=== PATIENT | female | born 1960 | race Two or more races ===

== ENCOUNTER 2023-08-19 01:48 | Inpatient (IN) | payer MEDICAID, OTHER ==
[~2023-08-19] VITALS: Ht 154.9 cm; Wt 115.2 kg
[2023-08-19 02:42] LABS: Basophils # (auto) 0.1 10 ^3/uL (0-0.2); Basophils % (auto) 0.8 % (0.0-2.0); Eosinophils # (auto) 0.4 10 ^3/uL (0-0.8); Eosinophils % (auto) 4.6 % (0.0-7.0); Hematocrit 40.5 % (36.0-46.0); Hemoglobin 12.5 g/dL (12.2-16.2); Lymphocytes # (auto) 1.7 10 ^3/uL (0.4-5.4); Lymphocytes % (auto) 19.3 % (10.0-50.0); Mean Corpuscular Hemoglobin 25.6 pg (28.0-32.0); Mean Corpuscular Volume 82.5 fL (80.0-100.0); Monocytes # (auto) 0.9 10 ^3/uL (0-1.3); Monocytes % (auto) 10.1 % (0.0-12.0); Neutrophils # (auto) 5.8 10 ^3/uL (1.6-8.6); Neutrophils % (auto) 65.2 % (37.0-80.0); Red Blood Cells 4.91 10^6/uL (4.0-5.20); Red Cell Distribution Width 16.7 % (11.8-14.3); White Blood Cell 8.9 10^3/uL (4.4-10.8)
[2023-08-19 02:53] LABS: Alanine Aminotransferase 49 U/L (7-40); Albumin 3.8 g/dL (3.2-4.8); Alkaline Phosphatase 71 U/L (46-116); Anion Gap 2 (5-15); Aspartate Aminotransferase 37 U/L (13-40); BUN/Creatinine Ratio 30.6 (10.0-20.0); Blood Urea Nitrogen 15 mg/dL (9-23); Calcium 9.5 mg/dL (8.7-10.4); Carbon Dioxide 31 mmol/L (20-30); Chloride 109 mmol/L (98-107); Glucose 110 mg/dL (74-106); Potassium 4.2 mmol/L (3.5-5.1); Sodium 142 mmol/L (136-145)
[2023-08-19 02:54] LABS: Bilirubin, Total 0.3 mg/dL (0.2-1.0)
[2023-08-19 03:01] LABS: Urine Bacteria None Seen /hpf (None Seen)
[2023-08-19 03:17] LABS: Urine Blood Negative /uL (Negative); Urine Clarity Clear (Clear); Urine Color Light-Yellow (Yellow); Urine Protein, UAD Negative (Negative); Urine Specific Gravity 1.023 (1.001-1.035); Urine Urobilinogen Normal (Negative); Urine WBC <1 /hpf (0 - 5); Urine pH 5.5 (5.0-9.0)
[2023-08-19 03:28] VITALS: PULSE 85; RESP 20; O2SAT 94
[2023-08-19] MEDS: SODIUM CHLOR 0.9% PF (SALINE LOCK) 10ML VIAL/SYR IV SCH (05:45)
[2023-08-19 06:17] LABS: INR 1.1 (0.9-1.15); Prothrombin Time 11.5 sec (9.3-11.8)
[2023-08-19] MEDS: HEPARIN SODIUM (PORCINE) 5000 UNITS/ML 1ML VIAL IV ONE (06:48)
[2023-08-19] MEDS: HEPARIN DRIP/D5W 100UNITS/ML 250 ML IV SCH (06:48)
[2023-08-19 07:45] VITALS: PULSE 93; RESP 20; O2SAT 92
[2023-08-19] MEDS ORDERED: MORPHINE SULFATE 4 MG/ML SYR/VIAL IV PRN (11:15)
[2023-08-19] MEDS ORDERED: ONDANSETRON HCL 4 MG/2 ML VIAL IV PRN (11:15)
[2023-08-19] MEDS ORDERED: NITROGLYCERIN 0.4 MG SL TAB SL PRN (11:15)
[2023-08-19] MEDS: cefTRIAXone 1GM/50ML D5W 50 ML IV ONE (13:50)
[2023-08-19 14:05] LABS: INR 1.18 (0.9-1.15); Partial Thromboplastin Time 38.6 SEC (24.5-34.5); Prothrombin Time 12.3 sec (9.3-11.8)
[2023-08-19] MEDS: FUROSEMIDE 20 MG/2 ML VIAL IV SCH (18:09)
[2023-08-19 19:13] LABS: Triglycerides 106 mg/dL (< 150)
[2023-08-19 19:14] LABS: LDL Cholesterol 83 mg/dL (< 100)
[2023-08-19 19:15] LABS: Cholesterol 142 mg/dL (< 200); HDL Cholesterol 49 mg/dL (40-59)
[2023-08-19 20:12] VITALS: PULSE 78; RESP 16; O2SAT 98
[2023-08-19 21:39] LABS: INR 1.21 (0.9-1.15); Partial Thromboplastin Time 45.6 SEC (24.5-34.5); Prothrombin Time 12.5 sec (9.3-11.8)
[2023-08-19] MEDS: HYDROcodone-ACET 5/325MG TAB PO PRN (22:54)
[2023-08-19] MEDS: ATORVASTATIN 20 MG TAB PO SCH (23:22)
[2023-08-20] VITALS (8 sets, daily range): BP systolic 106–146; BP diastolic 59–86; PULSE 73–87; RESP 18–20; TEMP 36.9; O2SAT 96–100
[2023-08-20 03:00] LABS: Basophils # (auto) 0.1 10 ^3/uL (0-0.2); Basophils % (auto) 0.6 % (0.0-2.0); Eosinophils # (auto) 0.4 10 ^3/uL (0-0.8); Eosinophils % (auto) 4.1 % (0.0-7.0); Hematocrit 40.2 % (36.0-46.0); Hemoglobin 12.4 g/dL (12.2-16.2); Lymphocytes # (auto) 1.6 10 ^3/uL (0.4-5.4); Lymphocytes % (auto) 18.3 % (10.0-50.0); Mean Corpuscular Hemoglobin 25.6 pg (28.0-32.0); Mean Corpuscular Hgb Conc. 30.8 g/dL (32.0-36.0); Monocytes % (auto) 10.9 % (0.0-12.0); Neutrophils # (auto) 5.9 10 ^3/uL (1.6-8.6); Neutrophils % (auto) 66.1 % (37.0-80.0); Nucleated Red Blood Cells % 0.1 %; Red Blood Cells 4.85 10^6/uL (4.0-5.20); Red Cell Distribution Width 16.4 % (11.8-14.3); White Blood Cell 8.9 10^3/uL (4.4-10.8)
[2023-08-20 03:12] LABS: Alanine Aminotransferase 43 U/L (7-40); Albumin 3.6 g/dL (3.2-4.8); Alkaline Phosphatase 71 U/L (46-116); Anion Gap 3 (5-15); Aspartate Aminotransferase 36 U/L (13-40); BUN/Creatinine Ratio 15.3 (10.0-20.0); Bilirubin, Total 0.2 mg/dL (0.2-1.0); Blood Urea Nitrogen 9 mg/dL (9-23); Calcium 9.3 mg/dL (8.7-10.4); Carbon Dioxide 36 mmol/L (20-30); Chloride 103 mmol/L (98-107); Glucose 127 mg/dL (74-106); Sodium 142 mmol/L (136-145); Total Protein 6.9 g/dL (5.7-8.2)
[2023-08-20 03:19] LABS: INR 1.19 (0.9-1.15); Partial Thromboplastin Time 51.5 SEC (24.5-34.5); Prothrombin Time 12.4 sec (9.3-11.8)
[2023-08-20] MEDS ORDERED: OLAN20TA PO (03:53)
[2023-08-20] MEDS ORDERED: SERT-206 PO (03:53)
[2023-08-20 04:44] LABS: Triglycerides 102 mg/dL (< 150)
[2023-08-20 04:45] LABS: LDL Cholesterol 82 mg/dL (< 100)
[2023-08-20 04:46] LABS: Amphetamine Screen, Urine Neg (NEGATIVE); Barbiturate Scree,Urine Neg (NEGATIVE); Benzodiazephine Screen, Urine Neg (NEGATIVE); Cocaine Screen, Urine Neg (NEGATIVE); Opiate Scree,Urine Neg (NEGATIVE)
[2023-08-20 04:46] LABS: Cholesterol 139 mg/dL (< 200); HDL Cholesterol 46 mg/dL (40-59)
[2023-08-20 04:47] LABS: Cannabinoid Screen, Urine Neg (NEGATIVE); Phencyclidine Screen, Urine Neg (NEGATIVE)
[2023-08-20 09:52] LABS: INR 1.19 (0.9-1.15); Partial Thromboplastin Time 69.5 SEC (24.5-34.5); Prothrombin Time 12.4 sec (9.3-11.8)
[2023-08-20] MEDS: cefTRIAXone 1GM/50ML D5W 50 ML IV SCH (11:43)
[2023-08-20] MEDS: ASPirin 81 mg TAB PO SCH (11:43)
[2023-08-20] MEDS: DOCUSATE SOD 100 MG CAP PO SCH (11:43)
[2023-08-20 14:53] LABS: INR 1.21 (0.9-1.15); Partial Thromboplastin Time 65.7 SEC (24.5-34.5); Prothrombin Time 12.5 sec (9.3-11.8)
[2023-08-20] MEDS: OLANZapine 5 MG TAB PO SCH (18:20)
[2023-08-21] VITALS (9 sets, daily range): BP systolic 112–149; BP diastolic 57–64; PULSE 64–82; RESP 17–20; TEMP 36.9; O2SAT 94–97
[2023-08-21 05:39] LABS: Anion Gap 3 (5-15); Carbon Dioxide 37 mmol/L (20-30); Chloride 98 mmol/L (98-107); Potassium 4.3 mmol/L (3.5-5.1); Sodium 138 mmol/L (136-145)
[2023-08-21 05:40] LABS: Calcium 9.8 mg/dL (8.7-10.4)
[2023-08-21 05:43] LABS: Hemoglobin 12.1 g/dL (12.2-16.2); Lymphocytes # (auto) 1.5 10 ^3/uL (0.4-5.4); Mean Corpuscular Volume 83.2 fL (80.0-100.0); Monocytes # (auto) 0.8 10 ^3/uL (0-1.3); White Blood Cell 9.1 10^3/uL (4.4-10.8)
[2023-08-21 05:45] LABS: BUN/Creatinine Ratio 16.3 (10.0-20.0); Basophils # (auto) 0 10 ^3/uL (0-0.2); Basophils % (auto) 0.5 % (0.0-2.0); Blood Urea Nitrogen 8 mg/dL (9-23); Eosinophils # (auto) 0.2 10 ^3/uL (0-0.8); Eosinophils % (auto) 2.6 % (0.0-7.0); Glucose 114 mg/dL (74-106); Hematocrit 38.7 % (36.0-46.0); Lymphocytes % (auto) 16.6 % (10.0-50.0); Mean Corpuscular Hemoglobin 26.1 pg (28.0-32.0); Mean Corpuscular Hgb Conc. 31.3 g/dL (32.0-36.0); Monocytes % (auto) 8.6 % (0.0-12.0); Neutrophils # (auto) 6.5 10 ^3/uL (1.6-8.6); Neutrophils % (auto) 71.7 % (37.0-80.0); Nucleated Red Blood Cells % 0.1 %; Red Blood Cells 4.65 10^6/uL (4.0-5.20); Red Cell Distribution Width 16.4 % (11.8-14.3)
[2023-08-21 05:46] LABS: Magnesium 1.9 mg/dL (1.6-2.6)
[2023-08-21 05:59] LABS: INR 1.16 (0.9-1.15); Prothrombin Time 12.1 sec (9.3-11.8)
[2023-08-21 06:14] LABS: Partial Thromboplastin Time 70.1 SEC (24.5-34.5)
[2023-08-21] MEDS: HEPARIN DRIP/D5W 100UNITS/ML 250 ML IV SCH (16:45)
[2023-08-21] MEDS: OLANZapine 5 MG TAB PO SCH (21:14)
[2023-08-22 05:00] VITALS: BP 123/64; PULSE 70; RESP 20; TEMP 98.1; O2SAT 93
[2023-08-22 06:11] LABS: Basophils # (auto) 0 10 ^3/uL (0-0.2); Basophils % (auto) 0.5 % (0.0-2.0); Eosinophils # (auto) 0.3 10 ^3/uL (0-0.8); Eosinophils % (auto) 3.6 % (0.0-7.0); Hematocrit 40.3 % (36.0-46.0); Lymphocytes # (auto) 1.3 10 ^3/uL (0.4-5.4); Mean Corpuscular Hemoglobin 26.2 pg (28.0-32.0); Mean Corpuscular Hgb Conc. 32.2 g/dL (32.0-36.0); Mean Corpuscular Volume 81.4 fL (80.0-100.0); Monocytes # (auto) 0.7 10 ^3/uL (0-1.3); Monocytes % (auto) 8.4 % (0.0-12.0); Neutrophils # (auto) 5.9 10 ^3/uL (1.6-8.6); Neutrophils % (auto) 71.5 % (37.0-80.0); Nucleated Red Blood Cells % 0.1 %; Red Blood Cells 4.95 10^6/uL (4.0-5.20); Red Cell Distribution Width 16.3 % (11.8-14.3); White Blood Cell 8.3 10^3/uL (4.4-10.8)
[2023-08-22 06:12] LABS: Anion Gap 3 (5-15); Carbon Dioxide 39 mmol/L (20-30); Chloride 96 mmol/L (98-107); Potassium 3.9 mmol/L (3.5-5.1); Sodium 138 mmol/L (136-145)
[2023-08-22 06:13] LABS: Calcium 10.3 mg/dL (8.7-10.4)
[2023-08-22 06:18] LABS: BUN/Creatinine Ratio 16.3 (10.0-20.0); Blood Urea Nitrogen 8 mg/dL (9-23); Glucose 103 mg/dL (74-106)
[2023-08-22 06:26] LABS: INR 1.16 (0.9-1.15); Partial Thromboplastin Time 66.5 SEC (24.5-34.5); Prothrombin Time 12.1 sec (9.3-11.8)
[2023-08-22 08:20] VITALS: PULSE 66; PULSE 90
[2023-08-22 09:00] VITALS: BP 138/78; PULSE 78; RESP 20; TEMP 97.7; O2SAT 92
[2023-08-22 09:30] LABS: Urine Bacteria None Seen /hpf (None Seen)
[2023-08-22 11:08] LABS: Urine Blood 3+ /uL (Negative); Urine Clarity Ex.Turbid (Clear); Urine Color Light-Red (Yellow); Urine Protein, UAD 1+ (Negative); Urine Urobilinogen Normal (Negative); Urine WBC 4 /hpf (0 - 5); Urine pH 7.5 (5.0-9.0)
[2023-08-22] MEDS: SERTRALINE HCL 50 MG TAB PO SCH (11:34)
[2023-08-22 13:00] VITALS: BP 114/65; PULSE 78; RESP 20; TEMP 97.9; O2SAT 92
[2023-08-22 16:57] VITALS: BP 128/79; PULSE 86; RESP 20; TEMP 98; O2SAT 93
[2023-08-22 20:00] VITALS: PULSE 78
[2023-08-23] VITALS (8 sets, daily range): BP systolic 110–149; BP diastolic 62–76; PULSE 55–88; RESP 17–20; TEMP 97.5–97.9; O2SAT 91–99
[2023-08-24 01:00] VITALS: BP 119/69; PULSE 78; RESP 16; TEMP 97.6; O2SAT 92
[2023-08-24 05:00] VITALS: BP 125/71; PULSE 87; RESP 18; TEMP 98.6; O2SAT 91
[2023-08-24 07:52] VITALS: PULSE 75
[2023-08-24 09:00] VITALS: BP 115/78; PULSE 77; RESP 18; TEMP 98.1; O2SAT 94
[2023-08-24] MEDS ORDERED: SERT-206 PO (10:15)
[2023-08-24] MEDS ORDERED: OLAN20TA PO (10:15)
[2023-08-24] MEDS ORDERED: LEVO500T91 PO (10:17)
[2023-08-24] MEDS ORDERED: ASPI1TAB20 PO (10:17)
[2023-08-24 12:57] VITALS: BP 111/68; PULSE 81; RESP 18; TEMP 97.8; O2SAT 92
[2023-08-24 13:00] VITALS: BP 111/68; PULSE 81; RESP 18; TEMP 98; O2SAT 92
== END 2023-08-24 18:13 | disposition home or self-care (01) | DRG 133 ==
LOC: ER 01:48 → TELE 11:08 → TELE-WESTW 23:49
PROVIDERS: ADMIT Nurse Practitioner Family; ATTEND Internal Medicine
DX: J96.01 Acute respiratory failure with hypoxia (principal); I21.4 Non-ST elevation (NSTEMI) myocardial infarction; R45.851 Suicidal ideations; L03.115 Cellulitis of right lower limb; F20.9 Schizophrenia, unspecified; F32.A Depression, unspecified; L03.116 Cellulitis of left lower limb; Z91.51 Personal history of suicidal behavior; Z83.3 Family history of diabetes mellitus; Z56.0 Unemployment, unspecified; Z80.1 Family history of malignant neoplasm of trachea, bronchus and lung; Z82.49 Family history of ischemic heart disease and other diseases of the circulatory system; Z68.42 Body mass index [BMI] 45.0-49.9, adult; E66.01 Morbid (severe) obesity due to excess calories; Z91.199 Patient's noncompliance with other medical treatment and regimen due to unspecified reason
CPT/HCPCS: 36415; 71045; 80048; 80053; 80061; 80307; 81001; 83036; 83735; 83880; 84443; 84484; 85025; 85610; 85730; 93005; 93306; 93970; 96365; 96375; 97110; 97116; 97163; 97530; G0378